=== PATIENT | female | born 1970 | race Caucasian/White ===

== ENCOUNTER 2023-05-29 13:33 | Emergency (ER) | payer OTHER, SELFPAY ==
--- NOTE | 2023-05-29 13:34 | DI.RAD.S_ITS ---
PROCEDURE: XR SHOULDER RT MIN 2V INDICATIONS: Eval for dislocation TECHNIQUE: 2 views of the shoulder were acquired. COMPARISON: None. FINDINGS: Bones: Minimally displaced humeral head/neck fracture without dislocation Soft tissues: No suspicious soft tissue calcifications. IMPRESSION: Minimally displaced humeral head neck fracture. No dislocation. Dictated by: Sabina Delgado M.D. on 05/29/2023 at 14:37 Approved by: Sabina Delgado M.D. on 05/29/2023 at 14:38
[2023-05-29 13:45] VITALS: BP 130/80; PULSE 71; RESP 12; BMI 24.2
[2023-05-29] MEDS: HYDROMORPHONE 1 MG INJ IV (14:08)
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
[2023-05-29] MEDS: BACITRACIN OINT 0.9 GM PCKT 1 APPLIC TOP (15:14)
[2023-05-29 15:22] VITALS: BP 120/70; PULSE 61; O2SAT 100
--- NOTE | 2023-06-06 08:22 | PC.NURSE ---
Late entry: The patient was ordered a 1 mg dose of dilaudid. She was unsure how she would feel with a full dose. The medication was tirated to meet the needs of the patient's comfort. She was given 0.5mg of the 1mg dose. The wasted dose of 0.5mg dilaudid was thrown into the waste receptacle in her room unwitnessed.
== END 2023-05-29 15:22 | disposition home or self-care (01) ==
PROVIDERS: Emergency Provider Emergency Medicine
DX: S42.301A Unspecified fracture of shaft of humerus, right arm, initial encounter for closed fracture (principal); S80.212A Abrasion, left knee, initial encounter; X50.1XXA Overexertion from prolonged static or awkward postures, initial encounter
CPT/HCPCS: 36415; 73030; 96374; 99284; J1170